=== PATIENT | male | born 1935 ===

== ENCOUNTER 2017-05-07 09:59 | Emergency (ER) | payer MEDICARE, BC ==
--- NOTE | 2017-05-07 10:57 | UC ---
Abdominal Pain Male HPI - HPI Summary HPI Summary: 81 year old male on a blood thinner presents with complains of large left sided hematoma/bruising. I will send him to the ER. - History of Current Complaint Stated Complaint: BRUISE ON LEFT SIDE ABD Time Seen by Provider: 05/07/17 10:57 Hx Obtained From: Patient Onset/Duration: Sudden Onset Severity Initially: Moderate Severity Currently: Moderate Pain Scale Used: 0-10 Numeric - 5 Location: Other - LEFT SIDE OF ABDOMEN - Allergies/Home Medications Allergies/Adverse Reactions: Allergies Allergy/AdvReac Type Severity Reaction Status Date / Time No Known Allergies Allergy Verified 05/07/17 10:58 Home Medications: Home Medications Aspirin Low Dose CHEW TAB* [Aspirin Low Dose TAB*] 81 mg PO DAILY 05/07/17 [ History Confirmed 05/07/17] Gabapentin CAP(*) [Neurontin 100 mg CAP(*)] 200 mg PO TID 05/07/17 [History Confirmed 05/07/17] Metoprolol Tartrate TAB* [Lopressor TAB*] 25 mg PO BID 05/07/17 [History Confirmed 05/07/17] Rivaroxaban TAB(*) [Xarelto 10 mg (*)] 10 mg PO DAILY 05/07/17 [History Confirmed 05/07/17] PMH/Surg Hx/FS Hx/Imm Hx Previously Healthy: Yes - Surgical History Surgical History: Yes Surgery Procedure, Year, and Place: PROSTATE SURGERY 06/01 - Social History Substance Use Type: None Review of Systems Constitutional: Negative Skin: Other - LEFT SIDED ABOMENINAL BRUISING/HEMATOMA Eyes: Negative ENT: Negative Respiratory: Negative Cardiovascular: Negative Gastrointestinal: Negative Genitourinary: Negative Motor: Negative Neurovascular: Negative Musculoskeletal: Negative Neurological: Negative Psychological: Negative All Other Systems Reviewed And Are Negative: Yes Physical Exam Triage Information Reviewed: Yes Eye Exam: Normal ENT Exam: Normal Dental Exam: Normal Neck exam: Normal Neck: Positive: 1 Respiratory Exam: Normal Cardiovascular Exam: Normal Abdomen Description: Positive: Other: - LEFT SIDED ABOMENINAL BRUISING/HEMATOMA Musculoskeletal Exam: Normal Neurological Exam: Normal Psychological Exam: Normal Skin Exam: Normal Abd Pain Male Course/Dx - Differential Dx/Clinical Impression Provider Diagnoses: LEFT SIDED ABOMENINAL BRUISING/HEMATOMA Discharge - Discharge Plan Condition: Stable Disposition: HOME Patient Education Materials: Hematoma (ED) Referrals: Colby Guerin MD [Medical Doctor] - Additional Instructions: PLEASE GO TO ER FOR LEFT SIDED ABDOMINAL HEMATOMA.
[2017-05-07 11:09] VITALS: BP 153/87
== END 2017-05-07 11:18 | disposition home or self-care (01) ==
LOC: UCCORT 09:59
DX: S30.1XXA Contusion of abdominal wall, initial encounter (principal); X58.XXXA Exposure to other specified factors, initial encounter; Y93.9 Activity, unspecified; Y92.9 Unspecified place or not applicable; Z79.01 Long term (current) use of anticoagulants
CPT/HCPCS: 99211; G0463